=== PATIENT | male | born 1975 | race Caucasian/White ===

== ENCOUNTER 2016-08-01 18:00 | Emergency (ER) | payer OTHER ==
[~2016-08-01] VITALS: Ht 165.1 cm; Wt 83.9 kg
[~2016-08-01 18:00] MED LIST: ARIPIPRAZOLE5 M1; BUPROPION XL150 MG PO; CAL MAG ZINC +1 EAC1 PO; CELECOXIB200 M1 PO; IBUPROFEN800 M1 PO; MULTI-DAY VITA1 EACH PO; PERCOCET 5-3251 EACH PO; POLYTRIM O200 GTT/BO OPH; TRAMADOL HCL50 M1 PO; ZOLOFT100 M1 PO
--- NOTE | 2016-08-01 19:18 | ED MVC/FALL/TRAUMA COMPLAINT ---
History of Present Illness General Chief Complaint: Fall Stated Complaint: SLIPPED AND FELL ON ICE AT WORK Source: patient Exam Limitations: no limitations Vital Signs & Intake/Output Vital Signs & Intake/Output Vital Signs Date Time Temp Pulse Resp B/P Pulse O2 O2 Flow FiO2 Ox Delivery Rate 08/01 1932 98.9 82 18 127/70 98 Room Air 08/01 1854 98.2 94 18 135/82 98 Room Air Allergies Coded Allergies: NO KNOWN ALLERGIES (08/25/14) Reconcile Medications Bupropion HCl (Bupropion XL) 150 MG TAB.ER.24H 1 TAB PO DAILY MENTAL HEALTH ( Reported) Calcium Carb/D3/Magnesium/Zinc (Oh Mag Zinc + D3 Tablet) 1 EACH TABLET 1 TAB PO DAILY SUPPLEMENT (Reported) Celecoxib 200 MG CAPSULE 1 CAP PO DAILY INFLAMMATION (Reported) Ibuprofen 800 MG TABLET 1 TAB PO TID pain Multivitamin (Multi-Day Vitamins) 1 EACH TABLET 1 TAB PO DAILY SUPPLEMENT ( Reported) Sertraline HCl (Zoloft) 100 MG TABLET 1.5 TAB PO DAILY MENTAL HEALTH ( Reported) Triage Note: TRIAGE: PT TO ED S/P FALL ON ICE, PT FELL BACK ONTO LEFT BUTTOCKS/HIP. HURT LEFT SHOULDER, LEFT KNEE, AND BOTH ELBOWS. DENIES HEADSTRIKE OR LOC. DENIES C-SPINE TENDERNESS ON EVAL. MED WITH MOTRIN IN TRIAGE Triage Nurses Notes Reviewed? yes Onset: Abrupt Duration: hour(s):, constant, continues in ED Timing: recent history Severity: moderate, severe Injuries/Fall Location: neck, upper extremity, lower extremity Method of Injury: fall Loss of Consciousness: no loss of consciousness No Modifying Factors: none HPI: 40-year-old male comes into emergency room for further evaluation after slipping and falling at work. Patient reports that he was carrying some cases of beer and fell backwards onto his left side. Patient complaining primarily of left shoulder bilateral elbow pain and left hip pain. Some soreness to his left knee. Denies hitting his head. Denies any abdominal chest pain or rib pain. Some slight pain to the left side of his neck. Pain is worse with any type or range of motion. Denies any other associated symptoms. Denies any anticoagulants that is on. (DANYELL EUBANKS,ELENA) Past History Travel History Traveled to [place] past 21 day No Medical History Any Pertinent Medical History? see below for history Neurological: NONE EENT: h/o pink eye Cardiovascular: NONE Respiratory: asthma Gastrointestinal: NONE Hepatic: NONE Renal: NONE Musculoskeletal: NONE Psychiatric: depression Endocrine: NONE Blood Disorders: NONE Cancer(s): NONE HIDE BUYER/Reproductive: NONE Tetanus Vaccine: 08/25/14 Surgical History Surgical History: N Psychosocial History What is your primary language Setswana Tobacco Use: Never used Family History Hx Contributory? No (ELENA LYN) Review of Systems Review of Systems Constitutional: Reports: no symptoms. Eyes: Reports: no symptoms. Ears, Nose, Throat, Mouth: Reports: no symptoms. Respiratory: Reports: no symptoms. Cardiovascular: Reports: no symptoms. Gastrointestinal/Abdominal: Reports: no symptoms. Genitourinary: Reports: no symptoms. Musculoskeletal: Reports: see HPI. Skin: Reports: no symptoms. Neurological/Psychological: Reports: no symptoms. All Other Systems: Reviewed and Negative (ELENA LYN) Physical Exam Physical Exam General Appearance: well developed/nourished, no apparent distress, alert Head: atraumatic, normal appearance Eyes: Bilateral: normal appearance, PERRL, EOMI. Ears, Nose, Throat, Mouth: hearing grossly normal, moist mucous membrane Neck: normal inspection, supple, full range of motion, paraspinous muscle tender , no midline tenderness Respiratory: normal breath sounds, chest non-tender, no respiratory distress Back: normal range of motion, no vertebral tenderness Extremities: Limited range of motion left shoulder, pulses intact, soft tissue tenderness, pain with abduction, Tenderness to elbow bilaterally, full range of motion, radial pulses 2+ bilaterally, strength intact, sensation intact, Tenderness over left quadriceps muscle, full range of motion of the, no effusion appreciated, no bony tenderness, MCL/LCL intact Neurologic/Psych: awake, alert, oriented x 3, normal gait, normal mood/affect Skin: intact, normal color Core Measures ACS in differential dx? No Severe Sepsis Present: No Septic Shock Present: No (ELENA LYN) Progress Differential Diagnosis: abd injury, C/T/L spine injury, ext injury, ICH, pelvis injury, pnemothorax, spinal cord injury, muscle strain, contusion Plan of Care: Orders Procedure Date/time Status XRY-SHOULDER COMPLETE-LEFT 08/01 1916 Active XRY-HIP 2-3 VIEWS, LEFT 08/01 1916 Active XRY-ELBOW 3 OR MORE VIEWS, R 08/01 1916 Active XRY-ELBOW 3 OR MORE VIEWS, L 08/01 1916 Active Diagnostic Imaging: Viewed by Me: Radiology Read. Discussed w/RAD: Radiology Read. Radiology Impression: SERVICE DATE: 08/01/16 EXAM TYPE: RAD - XRY-ELBOW 3 OR MORE VIEWS, L EXAMINATION: XR ELBOW, LEFT CLINICAL INFORMATION: Fall. Pain. COMPARISON: None TECHNIQUE: Four views of the left elbow. FINDINGS: No fracture. No dislocation. No joint effusion. There is spur at the insertion of the quadriceps tendon. There are spurs of the head of the radius at the head neck junction. There are coarse calcifications in the proximal forearm soft tissues IMPRESSION: No acute abnormality. DICTATED BY: IAN MYLES MD , SERVICE DATE: 08/01/16 EXAM TYPE: RAD - XRY-ELBOW 3 OR MORE VIEWS, R EXAMINATION: XR ELBOW, RIGHT CLINICAL INFORMATION: Fall. Pain. COMPARISON: None TECHNIQUE: 5 views of the right elbow. FINDINGS: No fracture. No dislocation. No joint effusion. There is a large spur of the olecranon at the quadriceps tendon insertion. IMPRESSION: No acute abnormality of the elbow., SERVICE DATE: 08/01 EXAM TYPE: RAD - XRY-HIP 2-3 VIEWS, LEFT EXAMINATION: XR HIP, LEFT CLINICAL INFORMATION: Fall. Pain. COMPARISON: None TECHNIQUE: Two views of the left hip. FINDINGS: No acute abnormality. No fracture. No dislocation. There are degenerative changes. There is spurring of the femoral head of the femoral head neck junction. No erosion of femoral head or acetabulum. No soft tissue calcification. IMPRESSION: No acute abnormality of the hip. Degenerative joint disease of hips. DICTATED BY: IAN MYLES MD DATE/TIME DICTATED:08/01/162025 WOOLING MACHINE OPERATOR:RYAN , SERVICE DATE: 08/01/16 EXAM TYPE: RAD - XRY- SHOULDER COMPLETE-LEFT EXAMINATION: XR SHOULDER, LEFT CLINICAL INFORMATION: Fall. Pain. COMPARISON: None TECHNIQUE: Four views of the left shoulder. FINDINGS: No fracture. No dislocation. Glenohumeral joint and acromioclavicular joint is normal. There are 2 coarse soft tissue calcifications laterally over the proximal upper arm. IMPRESSION: No acute abnormality. (ELENA LYN) Departure Departure Disposition: HOME OR SELF CARE Condition: Stable Clinical Impression Primary Impression: Left shoulder strain Secondary Impressions: Elbow contusion, Strain of left hip Referrals: ANGI FOLEY,BECKY Murphy (PCP/Family) Additional Instructions: Ice. Rest. Motrin. Follow-up with orthopedic if not better in 5-7 days. Return if any other concerns worsening symptoms. Please go over all results of today's visit with your primary care doctor. Contact your primary care doctor to let them know you were here in the emergency room. There may be nonspecific findings which may not be related to your visit today here in the emergency room but may require further evaluation and chronic monitoring by your primary care doctor. If you had a laceration today the chance of foreign body always remains. You should follow-up with your primary care doctor for recheck in 3-5 days for a wound check. If you had an x-ray done there is a chance that a fracture could have been missed on initial read and you should follow-up with your primary care doctor for repeat x-rays if symptoms persist. If your blood pressure was elevated here in the emergency room please have rechecked by her primary care doctor within the next 48 hours by your primary care doctor. If you were prescribed a narcotic here in the emergency room or any type of controlled substances you're not allowed to drive while taking this medication or operate any type of heavy machinery. Narcotics can make you feel lightheaded dizziness nausea and can cause constipation. You may need to mixing picker tender a stool softener. Thank you for choosing [facility] emergency room. Please return to the emergency room immediately if you have any other concerns worsening of symptoms. Departure Forms: Customer Survey Employee Industrial Accident General Discharge Information Prescriptions: Current Visit Scripts Ibuprofen 1 TAB PO TID #30 TAB (ELENA LYN) PA/LOGGING CREW SUPERVISOR Co-Sign Statement Statement: ED Attending supervision documentation- [] I saw and evaluated the patient. I have also reviewed all the pertinent lab results and diagnostic results. I agree with the findings and the plan of care as documented in the PA's/LOGGING CREW SUPERVISOR's documentation. [X] I have reviewed the ED Record and agree with the PA's/LOGGING CREW SUPERVISOR's documentation. [] Additions or exceptions (if any) to the PAs/LOGGING CREW SUPERVISOR's note and plan are summarized below: [] (HIRA FOLEY,ALANIS)
[2016-08-01 19:32] VITALS: BP 127/70
--- NOTE | 2016-08-01 20:29 | RADIOLOGY REPORT ---
EXAMINATION: XR SHOULDER, LEFT CLINICAL INFORMATION: Fall. Pain. COMPARISON: None TECHNIQUE: Four views of the left shoulder. FINDINGS: No fracture. No dislocation. Glenohumeral joint and acromioclavicular joint is normal. There are 2 coarse soft tissue calcifications laterally over the proximal upper arm. IMPRESSION: No acute abnormality.
--- NOTE | 2016-08-01 20:31 | RADIOLOGY REPORT ---
EXAMINATION: XR ELBOW, RIGHT CLINICAL INFORMATION: Fall. Pain. COMPARISON: None TECHNIQUE: 5 views of the right elbow. FINDINGS: No fracture. No dislocation. No joint effusion. There is a large spur of the olecranon at the quadriceps tendon insertion. IMPRESSION: No acute abnormality of the elbow.
--- NOTE | 2016-08-01 20:31 | RADIOLOGY REPORT ---
EXAMINATION: XR HIP, LEFT CLINICAL INFORMATION: Fall. Pain. COMPARISON: None TECHNIQUE: Two views of the left hip. FINDINGS: No acute abnormality. No fracture. No dislocation. There are degenerative changes. There is spurring of the femoral head of the femoral head neck junction. No erosion of femoral head or acetabulum. No soft tissue calcification. IMPRESSION: No acute abnormality of the hip. Degenerative joint disease of hips.
--- NOTE | 2016-08-01 20:34 | RADIOLOGY REPORT ---
EXAMINATION: XR ELBOW, LEFT CLINICAL INFORMATION: Fall. Pain. COMPARISON: None TECHNIQUE: Four views of the left elbow. FINDINGS: No fracture. No dislocation. No joint effusion. There is spur at the insertion of the quadriceps tendon. There are spurs of the head of the radius at the head neck junction. There are coarse calcifications in the proximal forearm soft tissues IMPRESSION: No acute abnormality.
[2016-08-01] MEDS ORDERED: IBUPROFEN800 M1 PO (20:55)
== END 2016-08-01 21:01 ==
LOC: ERH 18:00
DX: S46.912A Strain of unspecified muscle, fascia and tendon at shoulder and upper arm level, left arm, initial encounter (principal); S76.012A Strain of muscle, fascia and tendon of left hip, initial encounter; S50.01XA Contusion of right elbow, initial encounter; S50.02XA Contusion of left elbow, initial encounter; W00.0XXA Fall on same level due to ice and snow, initial encounter
CPT/HCPCS: 73030-LT; 73080-LT; 73080-RT; 73502-LT